=== PATIENT | female | born 1945 | race Asian ===

== ENCOUNTER 2017-11-08 16:56 | Emergency (ER) | payer OTHER, MEDICAID ==
[~2017-11-08] VITALS: Ht 167.6 cm; Wt 74.8 kg
[~2017-11-08 16:56] MED LIST: ALEN70TA45 PO; CIPR500S2 PO; HYDR12.5 PO; METH5TAB6 PO
[2017-11-08 17:13] VITALS: BP 148/102
--- NOTE | 2017-11-08 19:10 | NUR ---
REPORT RECEIVED FROM [employer] FOR [facility].
== END 2017-11-08 19:50 | disposition home or self-care (01) ==
LOC: ER 16:57
DX: S02.40CA Maxillary fracture, right side, initial encounter for closed fracture (principal); S02.31XA Fracture of orbital floor, right side, initial encounter for closed fracture; S62.164A Nondisplaced fracture of pisiform, right wrist, initial encounter for closed fracture; S80.212A Abrasion, left knee, initial encounter; I10 Essential (primary) hypertension; Z79.899 Other long term (current) drug therapy; W01.198A Fall on same level from slipping, tripping and stumbling with subsequent striking against other object, initial encounter; Y93.01 Activity, walking, marching and hiking; Y92.89 Other specified places as the place of occurrence of the external cause; Y99.8 Other external cause status
CPT/HCPCS: 29125; 70450; 70486; 73110; 99284; A4606; Z7610

== ENCOUNTER 2023-12-09 09:09 | Emergency (ER) | payer OTHER, MEDICAID ==
[~2023-12-09] VITALS: Ht 167.6 cm; Wt 61.2 kg
[~2023-12-09 09:09] MED LIST changes: -ALEN70TA45 PO; +ALEN70TA80 PO
[2023-12-09 09:18] VITALS: BP 154/96; TEMP 98.2
[2023-12-09 11:31] VITALS: O2SAT 96
== END 2023-12-09 11:32 | disposition home or self-care (01) ==
LOC: ER 09:12
DX: S93.492A Sprain of other ligament of left ankle, initial encounter (principal); I10 Essential (primary) hypertension; Z86.79 Personal history of other diseases of the circulatory system; W01.0XXA Fall on same level from slipping, tripping and stumbling without subsequent striking against object, initial encounter; Y93.89 Activity, other specified; Y92.098 Other place in other non-institutional residence as the place of occurrence of the external cause; Y99.8 Other external cause status
CPT/HCPCS: 73610-TC